=== PATIENT | female | born 1985 | race Two or more races ===

== ENCOUNTER 2016-12-09 12:28 | Emergency (ER) | payer OTHER ==
[~2016-12-09] VITALS: Ht 177.8 cm; Wt 91.0 kg
[2016-12-09 12:32] VITALS: BP 140/99
[2016-12-09] MEDS ORDERED: ACETAMINOPHEN 500MG TABLET PO ONE (17:30)
[2016-12-09] MEDS ORDERED: ONDANSETRON 4MG ODT PO ONE (17:30)
== END 2016-12-09 18:10 | disposition home or self-care (01) ==
LOC: ER 16:26
DX: S09.90XA Unspecified injury of head, initial encounter (principal); J45.909 Unspecified asthma, uncomplicated; W01.198A Fall on same level from slipping, tripping and stumbling with subsequent striking against other object, initial encounter; Y93.89 Activity, other specified; Y92.480 Sidewalk as the place of occurrence of the external cause
CPT/HCPCS: 99283; Q0162